=== PATIENT | male | born 1990 | race Asian ===

== ENCOUNTER 2022-10-13 13:25 | Emergency (ER) | payer MEDICAID ==
[~2022-10-13] VITALS: Ht 170.2 cm; Wt 68.9 kg
[2022-10-13 13:38] VITALS: BP_SYST 119
--- NOTE | 2022-10-13 14:00 | NUR ---
PT TO BED 05 ASSIGNED TO AYANA BOB
--- NOTE | 2022-10-13 14:05 | NUR ---
DR OSEGUERA AT BEDSIDE EXAMINING PATIENT
[2022-10-13] MEDS ORDERED: IBUPROFEN 800 MG TABLET PO ONE (14:15)
[2022-10-13] MEDS ORDERED: HYDROcodone/ACETAMIN 10-325 MG TAB PO ONE (14:15)
--- NOTE | 2022-10-13 14:30 | NUR ---
PT BIB SELF FROM HOME CC LOWER BACK PAIN RELATED TO MECHANICAL FALL. AOX3 SKIN INTACT, CAP RETUURN LESS THAN 3 SECOND.S
[2022-10-13] MEDS ORDERED: TRAM50TA2 PO (15:27)
[2022-10-13] MEDS ORDERED: IBUP-1971 PO (15:27)
--- NOTE | 2022-10-13 15:49 | NUR ---
Patient given written and verbal discharge instructions and verbalizes understanding. ER MD discussed with patient the results and treatment provided. Patient in stable condition. ID arm band removed. IV catheter removed intact and dressing applied, no active bleeding. Rx of IBUPROFEN AND NORCO given. Patient educated on pain management and to follow up with PMD. Opportunity for questions provided and answered. Medication side effect fact sheet provided.
[2022-10-13 15:51] VITALS: BP_SYST 125
== END 2022-10-13 15:49 | disposition home or self-care (01) ==
LOC: SED 13:25
DX: M54.30 Sciatica, unspecified side (principal); M54.50 Low back pain, unspecified; R20.2 Paresthesia of skin; M54.2 Cervicalgia; Z79.899 Other long term (current) drug therapy
CPT/HCPCS: 72100-TC; 99283